=== PATIENT | female | born 1965 | race Caucasian/White ===

== ENCOUNTER → 2017-07-23 | Outpatient (REF) | payer BC ==
[2017-07-23 14:41] LABS: TOTAL PROTEIN 7.3 GM/DL (6.4-8.2)
[2017-07-23 14:42] LABS: RETIC HEMOGLOBIN CONTENT CHr 32.9 PG (24-36); RETICULOCYTE % 1.6 % (0.5-1.5)
[2017-07-24 12:13] LABS: ALBUMIN % 53.2 % (55.8-66.1); GAMMA GLOBULIN % 16.4 % (11.1-18.8)
[2017-07-24 12:14] LABS: ALBUMIN 3.88 GM/DL (3.29-5.55)
[2017-07-26 10:11] LABS: FREE LAMBDA LIGHT CHAINS SERUM 17.9 mg/L (5.7-26.3); KAPPA/LAMBDA RATIO SERUM 0.78 (0.26-1.65); SOLUBLE TRANSFERRIN RECEPTOR 20.8 nmol/L (12.2-27.3)
== END ==
LOC: M LAB REF 13:19
PROVIDERS: ATTEND Internal Medicine Medical Oncology
DX: D50.9 Iron deficiency anemia, unspecified (principal)

== ENCOUNTER → 2018-02-18 | Outpatient (REF) | payer BC ==
[2018-02-18 14:51] LABS: APPEARANCE, URINE HAZY (CLEAR); BACTERIA, URINE AUTO 3+ (NEGATIVE); BILIRUBIN, URINE AUTO NEGATIVE (NEGATIVE); BLOOD, URINE BLOOD 2+ (NEGATIVE); COLOR, URINE STRAW (YELLOW); GLUCOSE, URINE (UA) AUTO NEGATIVE (NEGATIVE); KETONE, URINE AUTO NEGATIVE (NEGATIVE); LEUKOCYTE ESTERASE, URINE AUTO 1+ (NEGATIVE); NITRITE, URINE AUTO NEGATIVE (NEGATIVE); PROTEIN, URINE AUTO NEGATIVE (NEGATIVE); RBC, URINE AUTO 4 /HPF (0-3); SPECIFIC GRAVITY URINE AUTO 1.005 (1.002-1.035); SQUAMOUS EPITHELIAL CELL UR AU 2 /HPF (0-6); UROBILINOGEN, URINE AUTO 0.2 mg/dL (0.0-2.0); WBC, URINE AUTO 5 /HPF (0-3)
== END ==
LOC: M LAB REF 14:38
DX: D64.9 Anemia, unspecified (principal)
CPT/HCPCS: 81001